=== PATIENT | male | born 1990 | race Caucasian/White ===

== ENCOUNTER 2017-12-26 13:28 | Emergency (ER) | payer OTHER ==
[~2017-12-26] VITALS: Ht 172.7 cm; Wt 72.6 kg
[2017-12-26] MEDS ORDERED: CIPROFLOXIN HC2.5 M1 OTIC ×2 (15:54→16:01)
[2017-12-26 16:09] VITALS: BP 121/71
== END 2017-12-26 16:10 | disposition home or self-care (01) ==
LOC: M.ERS 13:28
DX: H57.11 Ocular pain, right eye (principal); F17.200 Nicotine dependence, unspecified, uncomplicated; Z88.0 Allergy status to penicillin

== ENCOUNTER → 2018-01-02 | Outpatient (CLI) | payer OTHER ==
[~2018-01-02] MED LIST: CIPROFLOXIN HC2.5 M1 OTIC
[2018-01-02 11:00] VITALS: BP 108/61
[2018-01-02 13:45] VITALS: BP 105/68
--- NOTE | 2018-01-02 14:15 | NUR ---
ARRIVED AMBULATORY. MADE SELF COMFORTABLE IN RECLINER. 8CM MIDLINE INSERTED TO RIGHT UPPER ARM AFTER X2 ATTEMPTS AT PIV. MIDLINE PLACED WITH ULTRASOUND PER HOSPITAL POLICY. CARE OF MIDLINE AT HOME REVIEWED. INFUSION COMPLETED AND TOLERATED WELL. MIDLINE FLUSHED AND LEFT INTACT FOR USE WITH NEXT 4 DAYS OF INFUSION. DENIES QUESTIONS OR NEEDS AT DISCHARGE.
== END ==
LOC: M.INFUS 10:30
DX: H46.9 Unspecified optic neuritis (principal)

== ENCOUNTER → 2018-01-03 | Outpatient (CLI) | payer OTHER | LOC: M.INFUS 10:16 | DX: H46.9 Unspecified optic neuritis (principal) ==

== ENCOUNTER → 2018-01-04 | Outpatient (CLI) | payer OTHER | LOC: M.INFUS 10:11 | DX: H46.9 Unspecified optic neuritis (principal) ==

== ENCOUNTER → 2018-01-05 | Outpatient (CLI) | payer OTHER | LOC: M.INFUS 10:30 | DX: H46.9 Unspecified optic neuritis (principal) ==

== ENCOUNTER → 2018-01-06 | Outpatient (CLI) | payer OTHER | LOC: M.INFUS 10:30 | DX: H46.9 Unspecified optic neuritis (principal) ==